=== PATIENT | female | born 2000 | race Caucasian/White ===

== ENCOUNTER 2020-07-22 12:29 | Outpatient (REF) | payer OTHER, MEDICAID, SELFPAY ==
--- NOTE | ~2020-07-22 | XR_ITS ---
EXAMINATION: XR PELVIS CLINICAL INFORMATION: Pain COMPARISON: None TECHNIQUE: AP view of the pelvis. FINDINGS: The bones and soft tissues are normal. No fracture. Sacroiliac and hip joints are normal. Pubic symphysis is normal. No abnormal soft tissue calcifications. XR/XR pelvis 1-2V IMPRESSION: Normal pelvis.
--- NOTE | ~2020-07-22 | XR_ITS ---
EXAMINATION: XR LUMBOSACRAL SPINE CLINICAL INFORMATION: Pain COMPARISON: 11/07/2019 TECHNIQUE: Three views of the lumbosacral spine. FINDINGS: Spina bifida occulta at L5. Vertebral body heights maintained. Disc spaces preserved. Alignment maintained. No significant degenerative changes. The paraspinal soft tissues are normal. XR/XR lumbar spine 2-3V IMPRESSION: Spina bifida occulta. Otherwise unremarkable radiographic appearance of the lumbar spine.
[2020-07-22 14:28] LABS: MANUAL DIFF FLAG NO
[2020-07-22 14:37] LABS: Basophils Absolute Auto 0.1 X10*3/uL (0.0-0.2); Basophils Percent Auto 0.9 % (0-2); Eosinophils Absolute Auto 0.1 X10*3/uL (0.0-0.4); Eosinophils Percent Auto 2.3 % (0-4); Hematocrit 42.2 % (37-47); Hemoglobin 14.3 g/dl (12.0-16.0); Imm Gran Abs Auto 0.01 X10*3/uL (0.00-0.03); Imm Gran Pct Auto 0.2 % (0.0-0.4); Lymphocytes Absolute Auto 2.2 X10*3/uL (1.2-4.9); Lymphocytes Percent Auto 37.9 % (20-40); Mean Corpuscular HGB Conc 33.9 g/dl (31.0-35.0); Mean Corpuscular Hemoglobin 30.4 pg (27.0-33.0); Mean Corpuscular Volume 89.8 fL (80-98); Mean Platelet Volume 10.4 fL (9.4-12.3); Monocytes Absolute Auto 0.8 X10*3/uL (0.1-1.2); Monocytes Percent Auto 13.4 % (2-11); Neutrophils Absolute Auto 2.6 X10*3/uL (2.0-8.3); Neutrophils Percent Auto 45.3 % (45-73); Platelet Count 294 X10*3/uL (160-400); White Blood Count 5.8 X10*3/uL (4.8-10.8)
[2020-07-22 14:57] LABS: Alanine Aminotransferase 17 U/L (0-31); Albumin Level 4.2 g/dL (3.5-5.0); Alkaline Phosphatase 69 U/L (39-117); Anion Gap 14 (12-20); Aspartate Amino Transferase 15 U/L (5-31); Bilirubin Total 1.2 mg/dL (0.0-1.0); Blood Urea Nitrogen 12 mg/dL (9-16); C Reactive Protein 0.02 mg/dL (< or = 0.50); Calcium 9.3 mg/dL (8.4-10.2); Carbon Dioxide 24 mmol/L (22-29); Chloride 106 mmol/L (96-108); Estimated Glomerular Filt Rate > 60; Glucose Random 78 mg/dL (60-115); Potassium 3.8 mmol/L (3.3-5.1); Rheumatoid Factor < 15.0 IU/mL (<15.0); Sodium 140 mmol/L (135-145); Total Protein 7.2 g/dL (6.5-8.0)
[2020-07-22 15:29] LABS: Erythrocyte Sedimentation Rate 3 MM/HR (0-20)
[2020-07-23 16:27] LABS: Cyclic Citrullinated Peptide <16 UNITS
[2020-07-23 22:08] LABS: Anti Nuclear Antibody Screen POSITIVE (NEGATIVE)
== END 2020-07-22 12:30 | disposition home or self-care (01) ==
LOC: HO.LAB 12:29
PROVIDERS: PCP Physician Assistant; Visit Provider Student in an Organized Health Care Education/Training Program
DX: M25.50 Pain in unspecified joint (principal)
CPT/HCPCS: 36415; 72100; 72170; 80053; 85025; 85652; 86038; 86039; 86140; 86200; 86431

== ENCOUNTER 2020-10-20 14:06 | Outpatient (REF) | payer OTHER, MEDICAID, SELFPAY ==
--- NOTE | ~2020-10-20 | US_ITS ---
EXAMINATION: US DIAGNOSTIC ULTRASOUND BREAST, RIGHT CLINICAL INFORMATION: 19-year-old with chronic history intermittent right inferior lateral cyclical breast pain. Also chronic intermittent right axillary pain. Patient provides history of fibromyalgia. Clinical breast exam demonstrates tenderness and possible 5 cm mass 5:00 to 6:00 position. No prior breast imaging. COMPARISON: None. TECHNIQUE: Ultrasound of the right breast is targeted to the areas of clinical concern. Imaging right axilla also performed. Patient is able to point to area of symptoms at time of imaging. Grayscale imaging and color Doppler are performed without and with harmonics. FINDINGS: There is no focal suspicious finding. There is no cystic or solid mass, architectural abnormality, duct ectasia, or edema in the soft tissue planes. There is no axillary adenopathy. Results are discussed with the patient at time of visit. US/US breast RT limited IMPRESSION: Normal study. ASSESSMENT: BI-RADS 1: Negative RECOMMENDATION: 1. Patient's chronic breast and axillary pain should be managed based on the clinical impression. 2. If there is clinical concern for palpable abnormality, further evaluation may be considered with surgical consult. Decision to proceed with biopsy should be based on clinical grounds and degree of clinical concern.
== END 2020-10-20 14:07 | disposition home or self-care (01) ==
LOC: HO.MAMMO 14:06
PROVIDERS: Visit Provider Nurse Practitioner Family
DX: N63.15 Unspecified lump in the right breast, overlapping quadrants (principal); M79.621 Pain in right upper arm
CPT/HCPCS: 76642

== ENCOUNTER 2021-02-26 11:39 | Outpatient (REF) | payer OTHER, MEDICAID, SELFPAY ==
[2021-02-26 12:29] LABS: Influenza A PCR NEGATIVE (Negative); Influenza B PCR NEGATIVE (Negative); Resp Syncy Virus RNA Qual PCR NEGATIVE (Negative); SARS COV2 PCR INHOUSE NEGATIVE (Negative)
== END 2021-02-26 11:40 | disposition home or self-care (01) ==
LOC: HO.LNP 11:39
PROVIDERS: Visit Provider Internal Medicine
DX: Z20.822 Contact with and (suspected) exposure to COVID-19 (principal); R43.9 Unspecified disturbances of smell and taste
CPT/HCPCS: 0241U

== ENCOUNTER 2021-04-25 22:53 | Emergency (ER) | payer OTHER, SELFPAY ==
--- NOTE | 2021-04-25 | ECG_ITS ---
Test Reason : palpitations Blood Pressure : / mmHG Vent. Rate : 073 BPM Atrial Rate : 073 BPM P-R Int : 150 ms QRS Dur : 076 ms QT Int : 360 ms P-R-T Axes : 045 034 019 degrees QTc Int : 396 ms Normal sinus rhythm Normal ECG When compared with ECG of 07-FEB-2019 11:26, No significant change was found Referred By: Generic ED Physician Electronically Signed By:Deepak Quevedo
--- NOTE | ~2021-04-25 | XR_ITS ---
EXAMINATION: XR CHEST CLINICAL INFORMATION: Shortness of breath and chest pain COMPARISON: 11/07/2019 TECHNIQUE: Frontal view of the chest was obtained. FINDINGS: Compared to the prior study, lung volumes are slightly decreased. Allowing for this, no significant abnormality is noted involving the heart, lungs, mediastinum, bony thorax or soft tissues. XR/XR chest 1V IMPRESSION: No acute intrathoracic disease
[2021-04-25 23:28] VITALS: BP 113/62; PULSE 77; RESP 16; TEMP 36.4; O2SAT 100; BMI 24.2
--- NOTE | 2021-04-25 23:41 | PC.NURSE ---
PT TRIAGED AND BROUGHT TO [facility].PT AMB TO BATHROOM. URINE CUP GIVEN IN CASE U/A ORDERED.
--- NOTE | 2021-04-25 23:51 | ED_ITS ---
HPI - General Adult General Chief complaint: General Medical Stated complaint: Chest pain/ trouble breathing, hurts to breathe Time Seen by Provider: 04/25/21 22:58 History of Present Illness HPI narrative: Patient is a 20-year-old female presents today with having chest pain after getting in to a stressful situation at work. Patient feels a tightness in her chest. No fever no chills no cough no congestion or upper respiratory symptoms. No diaphoresis. No history of diabetes, hypertension, NV, family history of NV. No history blood clots in the past. Not on control. Not sexually active does not think she is . Patient does admit to smoking. The pain happens every time she has a stressful situation. Resolve with time. Does not happen with exertion. Related Data Home Medications Medication Instructions Recorded Confirmed sertraline 25 mg tablet 12.5 mg PO DAILY tab 06/09/20 06/09/20 dextroamphetamine-amphetamine ER 1 cap PO DAILY 12/25/20 10 mg 24hr capsule,extend release Previous Rx's Medication Instructions Recorded meloxicam 15 mg tablet 15 mg PO DAILY #90 tab 10/29/20 albuterol sulfate 90 mcg/actuation 1 inh INHALATION QID PRN #6.7 g 02/26/21 aerosol inhaler azithromycin 250 mg tablet 250 mg PO DAILY 5 Days #5 tab 02/26/21 (Zithromax) Allergies Allergy/AdvReac Type Severity Reaction Status Date / Time No Known Allergies Allergy Verified 04/25/21 23:44 [No Known Allergies*] Review of Systems Verdana 4l Review of Systems: Verdana 4d No fever no chills positive Verdana 4d chest pain or diaphoresis Verdana 4d Yes all other systems are reviewed and are negative [facility] Past Medical History Attestation statement: The following information was validated with the patient. 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 Oriented X3. No acute distress. Eyes: Pupils equal, round and reactive to light. ENT: Pharynx normal. Neck: Normal inspection. Neck supple. No lymph nodes noted. No crepitus CVS: Normal heart rate and rhythm. Pulses normal. Normal S1 and S2 Respiratory: No respiratory distress. Breath sounds normal. No Wheezing. No rales Abdomen: Soft and nontender. No rigidity. No distention. good BS x4 Skin: Skin warm and dry. Normal skin color. Normal skin turgor. Extremities: No lower extremity edema. Neurovascular intact to all extremities. No Lacerations. No Rash Neuro: Oriented X 3. No motor deficit. No sensory deficit. Moving all extermities. No slurred speech Medical Decision Making MDM Narrative Medical decision making narrative: Well-appearing no acute distress symptoms consistent with having stressful event. Will check a chest x-ray to rule out the possibility of pneumonia pneumothorax. A COVID test was ordered. Patient's EKG showed a sinus pattern LA QRS QTC within normal limits is no acute ST segment elevation. Symptoms not consistent with ACS. Patient's chest x-ray is grossly negative. No evidence for pneumonia no evidence for pneumothorax. Patient's COVID test was negative. In stable condition with discharge patient home. Lab Data Lab results reviewed: Yes I reviewed the patient's lab results. Labs: Lab Results 04/25/21 Range/Units 23:55 COVID-19 (GEORGE) Negative (Negative) COVID-19 Clin Com See Note Discharge Plan Discharge Clinical Impression: Anxiety Patient Disposition: Home, Self-Care Instructions: Anxiety (ED) Prescriptions: No Action meloxicam 15 mg tablet 15 mg PO DAILY Qty: 90 0RF sertraline 25 mg tablet 12.5 mg PO DAILY 0RF azithromycin [Zithromax] 250 mg tablet 250 mg PO DAILY 5 Days Qty: 5 0RF albuterol sulfate 90 mcg/actuation HFA aerosol inhaler 1 inh inhalation QID PRN (Reason: shortness of breath or wheezing) Qty: 6.7 1RF Referrals: Miguel Mcintyre PA-C [Primary Care Provider] - 2 days
[2021-04-26 00:17] LABS: COVID-19 Test Negative (Negative); IDNOW Serial# 9DD0AD1C
[2021-04-26 00:52] VITALS: BP 99/60; PULSE 77; RESP 16; O2SAT 100
== END 2021-04-26 01:01 | disposition home or self-care (01) ==
PROVIDERS: Emergency Provider Emergency Medicine Emergency Medical Services; PCP Physician Assistant
DX: R07.9 Chest pain, unspecified (principal); R06.02 Shortness of breath; Z79.899 Other long term (current) drug therapy; Z20.822 Contact with and (suspected) exposure to COVID-19
CPT/HCPCS: 71045; 87635; 93005; 99284

== ENCOUNTER 2023-10-10 10:12 | Outpatient (AMB) | payer OTHER, MEDICAID, SELFPAY ==
--- NOTE | 2023-10-10 10:15 | A.OFFPC_ITS ---
Vital Signs 10/10/23 10:16 Height 5 ft 3 in Weight 151 lb 8 oz BMI 26.8 BP 128/86 Blood Pressure Location Rt brachial Position Sitting Pulse 71 Pulse Source Pulse Oximeter Pulse Oximetry (%) 99 Oxygen Delivery Method Room Air Intake Visit Reasons: f/u Allergies No Known Allergies [No Known Allergies*] Allergy (Verified 10/10/23 10:21) Medication List - Last Reviewed 10/10/23 by Alysa Arthur MA dextroamphetamine-amphetamine 10 mg ER 1 cap PO DAILY sertraline 12.5 mg PO DAILY Tobacco use date assessed: 10/10/23 Dental Screening Dental Screen Date: 10/10/23 Did you have a dental visit in the last 12 months?: Yes Did you have a dental problem in the last 6 months where you did not have access to dental care?: No Was dental information given to patient?: Patient has dentist HPI f/u HPI Details Patient is 22-year-old female came in today for physical exam Patient is seeing a psychiatrist in a missed and is taking Adderall and sertraline through them She is requesting a therapy appointment Patient says that it is difficult for her psychiatrist set her up because of her insurance She has changed her lifestyle Has stopped smoking Now eating healthy She has left her ex and is now with new partner and is doing much better. Lab order placed to be done fasting Physical exam 1 year Need OBGYN referral [facility] Medical History Depression Autism Fibromyalgia Surgical History No pertinent past surgical history Family History Father Medical history unknown Mother Chronic mental illness Substance abuse Paternal Grandmother CVD (cardiovascular disease) Myocardial infarction Brother Alive and well Social History Housing: Apartment Alcohol intake: never Patient Tobacco Use Status: Former Tobacco user Cigarettes Per Day: 2 Years Smoked: 2 years e-Cigarette/Vaping Use: Never Used Current occupational status: employed Cognitive needs: No Hearing needs: No Vision needs: No Questionnaire PHQ-9 Over the last 2 weeks, how often have you been bothered by any of the following problems? 1. Little interest or pleasure in doing things: several days 2. Feeling down, depressed, or hopeless: not at all 3. Trouble falling or staying asleep, or sleeping too much: several days 4. Feeling tired or having little energy: several days 5. Poor appetite or overeating: not at all 6. Feeling bad about yourself - or that you are a failure or have let yourself or your family down: several days 7. Trouble concentrating on things, such as reading the newspaper or watching television: several days 8. Moving or speaking so slowly that other people could have noticed. Or the opposite - being so fidgety or restless that you have been moving around a lot more than usual: several days 9. Thoughts that you would be better off or of hurting yourself in some way: not at all Total score: 6 Depression Screening Interpretation: Negative Depression Screening Done: Yes 36418 - PHQ-9 Billing: Yes Source: Developed by Drs. Junior Blair, Parul Dow, Gerry Sanchez and colleagues, with an educational carmen from [employer]. Thrive Questionnaire Date Thrive assessed: 10/10/23 I am a: Patient What is your living situation today?: I have a steady place to live Within the past 12 months, did the food you bought not last and you didn't have the money to get more?: Never true Within the past 12 months, did you worry whether your food would run out before you got money to buy more?: Never true Do you have trouble paying for medicines?: I choose not to answer this question Do you have trouble getting transportation to medical appointments?: I choose not to answer this question Do you have trouble paying your heating and electricity bill?: I choose not to answer this question Do you have trouble taking care of your child, family member or friend?: I choose not to answer this question Do you have trouble with day-to-day activities such as bathing, preparing meals, shopping, managing finances, etc.?: I choose not to answer this question Are you currently unemployed and looking for a job?: I choose not to answer this question Are you interested in more education?: I choose not to answer this question Please select the resources that you would like help with: None Currently or been in a relationship where the following occur: No concerns reported THRIVE Score: 0 AUDIT C Alcohol Use Questionnaire (AUDIT-C) 1. How often do you have a drink containing alcohol?: Never 3. How often do you have six or more drinks on one occasion?: Never Total Score: 0 Score Reviewed/Action Taken: Yes IDALMIS-7 AMB Questionnaire IDALMIS-7 Date IDALMIS - 7 assessed: 10/10/23 Feeling nervous, anxious, or on edge: 1 = Several days Not being able to stop or control worryin = Several days Worrying too much about different things: 1 = Several days Trouble relaxin = Several days Being so restless that it is hard to sit still: 1 = Several days Becoming easily annoyed or irritable: 1 = Several days Feeling afraid as if something awful might happen: 0 = Not at all Total IDALMIS-7 score (0-4 normal; 5-9 mild; 10-14 moderate; 15-21 severe): 6 Source: Developed by Drs. Junior Blair, Parul Dow, Gerry Sanchez and colleagues, with an educational carmen from [employer]. IDALMIS-7 Assessment Billing IDALMIS-7 Assessment Tool: IDALMIS-7 Assessment 79418 Review of Systems Const Denies chills, Denies fever(s) and Denies headache(s) Eyes Denies blurry vision ENT Denies headache(s), Denies nasal discharge, Denies nasal obstruction, Denies odynophagia and Denies sinus pain Card Denies chest pain at rest and Denies chest pain with activity Resp Denies cough and Denies hemoptysis GI Denies diarrhea, Denies odynophagia, Denies vomiting and Denies hematemesis Reports as per HPI Musc Denies abnormal gait Skin/Breast Reports as per HPI Neuro Denies Neuro-related abnormal movements, Denies Abnormal speech present, Denies abnormal gait, Denies headache(s) and Denies Sensory deficit (Neuro) Psych Denies mood swings and Denies paranoia Endo Reports as per HPI Lev/Lymph Reports as per HPI Aller/Immun Reports as per HPI Physical exam (Primary Care) Vital Signs: Last Vital Signs Pulse 71 10/10/23 10:16 BP 128/86 10/10/23 10:16 Pulse Ox 99 10/10/23 10:16 Oxygen Delivery Method Room Air 10/10/23 10:16 BMI result Body Mass Index 26.8 Tobacco/Smoking Status: Tobacco use Status Tobacco use date assessed 10/10/23 10/10/23 10:21 Patient Tobacco Use Status Former Tobacco user 10/10/23 10:21 e-Cigarette/Vaping Use Never Used 10/10/23 10:21 PHQ-9: PHQ-9 Score PHQ-9: Total score 6 10/10/23 10:56 Depression Screening Interpretation: Negative Thrive Assessment: Date of Thrive Assessment Date Thrive assessed 10/10/23 10/10/23 10:21 Currently or been in a relationship where the following occur: No concerns reported Const General: cooperative, comfortable and no acute distress Orientation/consciousness: patient oriented x3 HENMT Head: Yes normocephalic and Yes atraumatic Eyes General: appearance normal, both eyes and all related structures Pupils: Equal, round and reactive pupils present EOM: EOMs intact bilaterally Neck Neck: Yes supple and No lymphadenopathy Thyroid: Thyroid normal Lymphatic: no lymphadenopathy noted Resp Effort & Inspection: normal respiratory effort and able to speak in complete sentences Auscultation: clear to auscultation bilaterally Cardio Heart sounds: S1 normal heart sound present and S2 normal heart sound present GI Palpation (GI): Soft to palpation and nontender Auscultation: normal bowel sounds General: Yes no CVA tenderness Back/Spine/Pelvis Back: no CVA tenderness Skin General skin exam: elasticity normal and turgor normal Neuro General: patient oriented x3 and gait normal Cranial nerves: Yes Equal, round and reactive pupils present Speech: No Abnormal speech present Sensory Exam: No Sensory deficit (Neuro) Coordination: tandem gait normal and Romberg test negative Extrem General: Yes normal exam except as noted and No edema Assessment and Plan Assessment & Plan (1) Encounter for general adult medical examination with abnormal findings: Code(s): Z00.01 - Encounter for general adult medical examination with abnormal findings (2) Major depression, recurrent: Code(s): F33.9 - Major depressive disorder, recurrent, unspecified Qualifiers: Active/Remission status: in partial remission Qualified Code(s): F33.41 - Major depressive disorder, recurrent, in partial remission (3) ADD (attention deficit disorder): Code(s): F98.8 - Other specified behavioral and emotional disorders with onset usually occurring in childhood and adolescence Qualifiers: Attention deficit type: unspecified type Qualified Code(s): F98.8 - Other specified behavioral and emotional disorders with onset usually occurring in childhood and adolescence (4) Fibromyalgia: Code(s): M79.7 - Fibromyalgia Plan Patient is 22-year-old female came in today for physical exam Patient is seeing a psychiatrist in a missed and is taking Adderall and sertraline through them She is requesting a therapy appointment Patient says that it is difficult for her psychiatrist set her up because of her insurance She has changed her lifestyle Has stopped smoking Now eating healthy She has left her ex and is now with new partner and is doing much better. Lab order placed to be done fasting Physical exam 1 year Need OBGYN referral Orders: Orders LDL Cholesterol Direct Today F33.9 - Major depressive disorder, recurrent, unspecified, F98.8 - Other specified behavioral and emotional disorders with onset usually occurring in childhood and adolescence, M79.7 - Fibromyalgia, Z00.01 - Encounter for general adult medical examination with abnormal findings Comprehensive Met. Panel Today F33.9 - Major depressive disorder, recurrent, unspecified, F98.8 - Other specified behavioral and emotional disorders with onset usually occurring in childhood and adolescence, M79.7 - Fibromyalgia, Z00.01 - Encounter for general adult medical examination with abnormal findings TSH reflex Free T4 Today F33.9 - Major depressive disorder, recurrent, unspecified, F98.8 - Other specified behavioral and emotional disorders with onset usually occurring in childhood and adolescence, M79.7 - Fibromyalgia, Z00.01 - Encounter for general adult medical examination with abnormal findings Vitamin B12 Today F33.9 - Major depressive disorder, recurrent, unspecified, F98.8 - Other specified behavioral and emotional disorders with onset usually occurring in childhood and adolescence, M79.7 - Fibromyalgia, Z00.01 - Encounter for general adult medical examination with abnormal findings Vitamin D 25-OH (D2 and D3) Today F33.9 - Major depressive disorder, recurrent, unspecified, F98.8 - Other specified behavioral and emotional disorders with onset usually occurring in childhood and adolescence, M79.7 - Fibromyalgia, Z00.01 - Encounter for general adult medical examination with abnormal findings Complete Blood Count Auto Diff Today F33.9 - Major depressive disorder, recurrent, unspecified, F98.8 - Other specified behavioral and emotional disorders with onset usually occurring in childhood and adolescence, M79.7 - Fibromyalgia, Z00.01 - Encounter for general adult medical examination with abnormal findings Referrals [employer] Referral Z01.419 - Encounter for gynecological examination (general) (routine) without abnormal findings Coding Level of Care Code Est Pt Level 3 (09563) Est Pt Prev Care 18-39y(53993) Diagnoses Encounter for general adult medical examination with abnormal findings Z00.01 Recurrent major depressive disorder, in partial remission F33.41 Active/Remission status: in partial remission Attention deficit disorder, unspecified type F98.8 Attention deficit type: unspecified type Fibromyalgia M79.7 Additional Codes IDALMIS-7 Assessment Billing - IDALMIS-7 Assessment Tool: IDALMIS-7 Assessment [id number] ([id number])
[2023-10-10 10:16] VITALS: BP 128/86; PULSE 71; O2SAT 99; BMI 26.8
== END 2023-10-10 11:00 | disposition home or self-care (01) ==
PROVIDERS: PCP Physician Assistant; Visit Provider Internal Medicine
DX: Z00.00 Encounter for general adult medical examination without abnormal findings (principal); F33.41 Major depressive disorder, recurrent, in partial remission; F98.8 Other specified behavioral and emotional disorders with onset usually occurring in childhood and adolescence; M79.7 Fibromyalgia
CPT/HCPCS: 99395

== ENCOUNTER 2023-10-11 15:26 | Outpatient (REF) | payer OTHER, MEDICAID, SELFPAY ==
[2023-10-11 15:43] LABS: MANUAL DIFF FLAG NO
[2023-10-11 16:01] LABS: Basophils Percent Auto 0.8 % (0-2); Eosinophils Absolute Auto 0.1 X10*3/uL (0.0-0.4); Eosinophils Percent Auto 2.1 % (0-4); Hematocrit 41.4 % (37.0-47.0); Hemoglobin 14.4 g/dl (12.0-16.0); Imm Gran Abs Auto 0.01 X10*3/uL (0.00-0.03); Imm Gran Pct Auto 0.2 % (0.0-0.4); Lymphocytes Absolute Auto 1.6 X10*3/uL (1.2-4.9); Lymphocytes Percent Auto 34.4 % (20-40); Mean Corpuscular HGB Conc 34.8 g/dl (31.0-35.0); Mean Corpuscular Hemoglobin 30.6 pg (27.0-33.0); Mean Corpuscular Volume 88.1 fL (80.0-98.0); Mean Platelet Volume 10.3 fL (9.4-12.3); Monocytes Absolute Auto 0.4 X10*3/uL (0.1-1.2); Monocytes Percent Auto 8.4 % (2-11); Neutrophils Absolute Auto 2.6 x10*3/uL (2.0-8.3); Neutrophils Percent Auto 54.1 % (45-73); Platelet Count 221 X10*3/uL (160-400); Red Cell Distribution Width 13.2 % (11.0-16.0); White Blood Count 4.7 X10*3/uL (4.8-10.8)
[2023-10-11 17:08] LABS: Alanine Aminotransferase 15 U/L (0-31); Alkaline Phosphatase 57 U/L (39-117); Anion Gap 14 (12-20); Aspartate Amino Transferase 16 U/L (5-31); Bilirubin Total 0.8 mg/dL (0.0-1.0); Blood Urea Nitrogen 11 mg/dL (9-16); Calcium 8.8 mg/dL (8.4-10.2); Carbon Dioxide 20 mmol/L (22-29); Chloride 108 mmol/L (96-108); Estimated Glomerular Filt Rate > 60; Glucose Random 93 mg/dL (60-115); Sodium 138 mmol/L (135-145); Total Protein 6.8 g/dL (6.5-8.0)
[2023-10-11 17:15] LABS: TSH reflex Free T4 1.52 uIU/mL (0.32-4.0)
[2023-10-11 17:19] LABS: Vitamin B12 587 pg/mL (200-900)
[2023-10-12 11:24] LABS: LDL Cholesterol Direct 105 mg/dL (<100)
[2023-10-15 16:28] LABS: Vitamin D 25-OH, D2 <4 ng/mL; Vitamin D 25-OH, D3 10 ng/mL; Vitamin D 25-OH, Total 10 ng/mL (30-100)
== END 2023-10-11 15:27 | disposition home or self-care (01) ==
LOC: HO.LAB 15:26
PROVIDERS: PCP Internal Medicine; Visit Provider Internal Medicine
DX: Z00.01 Encounter for general adult medical examination with abnormal findings (principal); F33.9 Major depressive disorder, recurrent, unspecified; F98.8 Other specified behavioral and emotional disorders with onset usually occurring in childhood and adolescence; M79.7 Fibromyalgia
CPT/HCPCS: 36415; 80053; 82306; 82607; 83721; 84443; 85025

== ENCOUNTER 2023-12-07 08:11 | Outpatient (AMB) | payer OTHER, MEDICAID, SELFPAY ==
--- NOTE | 2023-12-07 08:13 | MHC.PC.OV ---
Intake Visit Reasons: non-binary transition, pt has an I-phone Allergies No Known Allergies [No Known Allergies*] Allergy (Verified 12/07/23 08:13) Medication List - Last Reconciled 12/07/23 by Gemma Mcdonald MD cholecalciferol (vitamin D3) 25 mcg PO DAILY 90 days dextroamphetamine-amphetamine 10 mg ER 1 cap PO DAILY sertraline 12.5 mg PO DAILY Tobacco use date assessed: 12/07/23 Dental Screening Dental Screen Date: 12/07/23 Did you have a dental visit in the last 12 months?: Yes Did you have a dental problem in the last 6 months where you did not have access to dental care?: No Was dental information given to patient?: Patient has dentist HPI non-binary transition, pt has an I-phone HPI Details Patient is 23 years old female, who would like to transition into gender change she is looking for someone who can start her on testosterone treatment she is already seeing a therapist we talked about getting list of endo in this area thru her insurance who can help her and then i can place a referral for her patient will get back to me [facility] Medical History Depression Autism Fibromyalgia Surgical History No pertinent past surgical history Family History Father Medical history unknown Mother Chronic mental illness Substance abuse Paternal Grandmother CVD (cardiovascular disease) Myocardial infarction Brother Alive and well Social History Housing: Apartment Alcohol intake: never Patient Tobacco Use Status: Former Tobacco user Cigarettes Per Day: 2 Years Smoked: 2 years e-Cigarette/Vaping Use: Never Used Current occupational status: employed Cognitive needs: No Hearing needs: No Vision needs: No Questionnaire Thrive Questionnaire Date Thrive assessed: 12/07/23 I am a: Patient What is your living situation today?: I have a steady place to live Within the past 12 months, did the food you bought not last and you didn't have the money to get more?: Never true Within the past 12 months, did you worry whether your food would run out before you got money to buy more?: Never true Do you have trouble paying for medicines?: I choose not to answer this question Do you have trouble getting transportation to medical appointments?: I choose not to answer this question Do you have trouble paying your heating and electricity bill?: I choose not to answer this question Do you have trouble taking care of your child, family member or friend?: I choose not to answer this question Do you have trouble with day-to-day activities such as bathing, preparing meals, shopping, managing finances, etc.?: I choose not to answer this question Are you currently unemployed and looking for a job?: I choose not to answer this question Are you interested in more education?: I choose not to answer this question THRIVE Score: 0 AUDIT C Alcohol Use Questionnaire (AUDIT-C) 2. How many drinks containing alcohol do you have on a typical day when you are drinking?: 1 or 2 3. How often do you have six or more drinks on one occasion?: Never Total Score: 0 IDALMIS-7 AMB Questionnaire IDALMIS-7 Date IDALMIS - 7 assessed: 10/10/23 Source: Developed by Drs. Junior Blair, Parul Dow, Gerry Sanchez and colleagues, with an educational carmen from [employer]. Review of Systems Const Denies chills and Denies fever(s) ENT Denies epistaxis and Denies nasal discharge Card Denies chest pain Resp Denies chest congestion, Denies cough and Denies hemoptysis GI Denies diarrhea and Denies nausea Skin/Breast Denies rash Neuro Reports no additional complaints Psych Reports no additional complaints Endo Reports no additional complaints Physical exam (Primary Care) Tobacco/Smoking Status: Tobacco use Status Tobacco use date assessed 12/07/23 12/07/23 08:14 Patient Tobacco Use Status Former Tobacco user 12/07/23 08:14 e-Cigarette/Vaping Use Never Used 12/07/23 08:14 Thrive Assessment: Date of Thrive Assessment Date Thrive assessed 12/07/23 12/07/23 08:14 Telehealth Telehealth Telehealth Platform: [facility] Location of provider rendering services: practice address Location of patient: address on file Patient Identification confirmed using: Name, : Yes Telehealth method: video Patient verbally consented to treatment: Yes Patient verbally consented to billing insurance company: Yes Patient informed of any privacy concerns related to visit: Yes Minutes spent on Phone/Video with Pt.: 12 Assessment and Plan Assessment & Plan (1) 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
== END 2023-12-07 08:44 | disposition home or self-care (01) ==
LOC: HO.HMCC 08:11
PROVIDERS: PCP Internal Medicine; Visit Provider Internal Medicine
DX: F64.8 Other gender identity disorders (principal)

== ENCOUNTER → 2023-12-07 08:11 | Outpatient (BNVA) | payer OTHER, MEDICAID, SELFPAY | PROVIDERS: PCP Internal Medicine; Visit Provider Internal Medicine | DX: F64.8 Other gender identity disorders (principal) ==

== ENCOUNTER 2024-01-10 09:46 | Outpatient (REF) | payer OTHER, MEDICAID, SELFPAY ==
[2024-01-11 11:23] LABS: Bacterial Vaginosis PCR NEGATIVE (Negative); Candida Group PCR NOT DETECTED (Not Detect); Candida glab krusei PCR NOT DETECTED (Not Detect); Trichomonas vaginalis PCR NOT DETECTED (Not Detect)
[2024-01-11 14:44] LABS: CT PCR NOT DETECTED (Not Detect.); NG PCR NOT DETECTED (Not Detect.)
== END 2024-01-10 09:47 | disposition home or self-care (01) ==
LOC: HO.LAB 09:46
PROVIDERS: PCP Internal Medicine; Visit Provider Advanced Practice Midwife
DX: N89.8 Other specified noninflammatory disorders of vagina (principal); Z01.419 Encounter for gynecological examination (general) (routine) without abnormal findings
CPT/HCPCS: 0352U; 36415; 87491; 87591; 87625; 88175

== ENCOUNTER 2024-01-10 09:46 | Outpatient (AMB) | payer OTHER, MEDICAID, SELFPAY ==
[2024-01-10 09:48] VITALS: BP 112/70; BMI 26.0
--- NOTE | 2024-01-10 09:48 | A.OFFVIS_ITS ---
Vital Signs 01/10/24 09:48 Height 5 ft 3 in Weight 147 lb BMI 26.0 BP 112/70 Intake Visit Reasons: Manager Process, Annual Computed Tomography Technician Services: Computed Tomography Technician Present Information Interpreted: clinical only Telephone Repairer: Telephone Repairer Present Allergies No Known Allergies [No Known Allergies*] Allergy (Verified 01/10/24 09:56) Medication List - Last Reconciled 01/10/24 by Chela Resendez CNM cholecalciferol (vitamin D3) 25 mcg PO DAILY 90 days dextroamphetamine-amphetamine 10 mg ER 1 cap PO DAILY sertraline 12.5 mg PO DAILY Is last menstrual period known: Yes Last menstrual period: 12/21/23 HPI HPI Manager Process, Annual: Details: 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 This patient is sexually active with female partner, does not have any concerns about STIs, as patient screens her partners carefully with history before engaging. Has been planning and considering transitioning female to male, and is awaiting full completion of referral to [facility] endocrinology, for transition services to start low-dose testosterone. Has done much self Education about physical changes to expect and emotional changes and appetite changes and everything else and is aware. 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 Has severe acne and eczema as well as asthma, and burn sites then react w excema. In the past was on medication for her acne, but it was very expensive, and discussed that it might be beneficial to engage with dermatology early on as part of transition process, as increasing testosterone may contribute to worsening of the acne. Has no specific concerns today about this visit and is not fussing about it. Is very helpful in sharing information she has learned about what she expects from the process and has a therapist as well and feels relaxed and prepared. Is not fussy about pronouns either, in that using they them indicates something different in terms of a binary choice, as well, and is comfortable just been known as Bucky . Has plans for eventual top surgery, but not bottom. [facility] Medical History Depression Autism Fibromyalgia Surgical History No pertinent past surgical history Family History Father Medical history unknown Mother Chronic mental illness Substance abuse Paternal Grandmother CVD (cardiovascular disease) Myocardial infarction Brother Alive and well Social History Housing: Apartment Alcohol intake: never Patient Tobacco Use Status: Former Tobacco user Cigarettes Per Day: 2 Years Smoked: 2 years e-Cigarette/Vaping Use: Never Used Current occupational status: employed Cognitive needs: No Hearing needs: No Vision needs: No Female Reproductive History Menstrual Age of Menarche: 11 Duration of menses: 3-5 days Date of last menstrual period: 12/21/23 control method: none Total pregnancies: 0 History of abnormal pap smear: No (no previous pap) Physical Exam Vital Signs: Last Vital Signs BP 112/70 01/10/24 09:48 BMI result Body Mass Index 26.0 Const General: healthy appearing, comfortable, no acute distress, well developed and alert Nutritional Appearance: average body habitus Orientation/consciousness: patient oriented x3 Limitations: no limitations HEENT Head: Yes normocephalic Neck Neck: Yes normal visual inspection Chest Chest palpation & inspection: normal inspection of the chest Breast/axilla inspection: normal inspection of the breasts and normal inspection of the axillae Breast/axilla palpation: normal palpation of the breasts and normal palpation of the axillae Resp Effort & Inspection: normal respiratory effort GI Inspection: Yes normal to inspection, No Abdominal wall edema and No distended Palpation (GI): Soft to palpation and nontender General: Yes bladder normal to palpation External Female Exam: normal external appearance and normal appearance of the urethra Speculum Exam - Vagina: normal appearance of the vagina, normal palpation and normal vaginal discharge Speculum Exam - Cervix: normal appearance of the cervix, normal palpation and nontender Bimanual exam- vagina & uterus: normal bimanual exam, normal palpation, uterine size normal, bladder normal to palpation, consistency normal, normal palpation, uterine mobility normal, uterine shape normal, No Cervical tenderness present, non-tender and no cervical motion tenderness Bimanual Exam- Adnexa, other: normal adnexae, no masses, normal and No adnexal tenderness Neuro General: patient oriented x3 Assessment & Plan Assessment & Plan (1) Encounter for routine gynecological examination: Code(s): Z01.419 - Encounter for gynecological examination (general) (routine) without abnormal findings Category: Medical (2) Encounter for screening examination for sexually transmitted disease: Code(s): Z11.3 - Encounter for screening for infections with a predominantly sexual mode of transmission Category: Medical (3) Acne: Code(s): L70.9 - Acne, unspecified Category: Medical (4) Cervical cancer screening: Code(s): Z12.4 - Encounter for screening for malignant neoplasm of cervix Category: Medical (5) Gender incongruence: Comment: Is awaiting full referral to [facility] for further assistance with transitioning female to male. has done much research, . Code(s): F64.9 - Gender identity disorder, unspecified Category: Medical Plan -----Discussed in this visit the following: healthy balanced diet, regular and consistent exercise, getting recommended health screens, doing the best she can for her particular health concerns, kegel exercises, pap smear screening and followup recommendations, mammography screening and SBE, normal changes in cycles in her life stage--- . Discussed screening for STIs and offered blood tests and she feels she needs any she will discuss it with her primary care provider in terms of blood work. Testing done today for gonorrhea chlamydia trichomoniasis Gardnerella and Jasmine. Discharge and anatomy looked completely normal female patient does have some hirsute is Um and evidence of acne scars all over. Discussed changes that may occur with the addition of the testosterone in turn in so of anatomy changes and clitoromegaly and other changes for anticipatory guidance and discussed that it would be helpful to discuss all these changes but she has educated herself very well already good muscle tone noted difficulty communicating them my part how to do a Kegel but discussed in detail and she does have good tone and because she has had a painful UTI in the past she makes it a practice to void when she needs to void at work and not hold her urine excessively. Discussed that while we say come back for yearly exams that may or may not be necessary, (unless she has a new sexual partner needs testing for STIs) in part though in her age group Pap smears as she has female anatomy would be recommended every 3 years. she has no plans to change that. Bucky was able to share much self-awareness and research into anticipatory issues that she is considering in this process of transitioning and is feeling relaxed about it. Orders: Orders CT NG by PCR Today N89.8 - Other specified noninflammatory disorders of vagina Bacterial Vaginosis Panel Today N89.8 - Other specified noninflammatory disorders of vagina PAP rfx HPV E6/E7 and 16 18/45 Today Z01.419 - Encounter for gynecological examination (general) (routine) without abnormal findings Coding Level of Care Code New Pt Prev Care 18-39yr([id number] Diagnoses Encounter for routine gynecological examination Z01.419 Encounter for screening examination for sexually transmitted disease Z11.3 Acne L70.9 Cervical cancer screening Z12.4 Gender incongruence F64.9
== END 2024-01-10 11:04 | disposition home or self-care (01) ==
LOC: HO.HWSM 09:46
PROVIDERS: PCP Internal Medicine; Visit Provider Advanced Practice Midwife
DX: Z01.419 Encounter for gynecological examination (general) (routine) without abnormal findings (principal); Z11.3 Encounter for screening for infections with a predominantly sexual mode of transmission; L70.9 Acne, unspecified; Z12.4 Encounter for screening for malignant neoplasm of cervix; F64.9 Gender identity disorder, unspecified
CPT/HCPCS: 99385

== ENCOUNTER 2024-06-06 08:16 | Outpatient (REF) | payer OTHER, MEDICAID, SELFPAY ==
[2024-06-06 12:42] LABS: Influenza A PCR NEGATIVE (Negative); Influenza B PCR NEGATIVE (Negative); Resp Syncy Virus RNA Qual PCR NEGATIVE (Negative); SARS COV2 PCR INHOUSE NEGATIVE (Negative)
== END 2024-06-06 08:17 | disposition home or self-care (01) ==
LOC: HO.LAB 08:16
PROVIDERS: PCP Internal Medicine; Visit Provider Physician Assistant
DX: B34.9 Viral infection, unspecified (principal); R09.89 Other specified symptoms and signs involving the circulatory and respiratory systems
CPT/HCPCS: 0241U; 87880

== ENCOUNTER 2024-06-06 08:16 | Outpatient (AMB) | payer OTHER, MEDICAID, SELFPAY ==
[2024-06-06 08:18] VITALS: BP 108/70; PULSE 95; TEMP 37.1; O2SAT 95; BMI 26.0
--- NOTE | 2024-06-06 08:18 | AM.OFFWIN_ITS ---
Intake Vital Signs 06/06/24 08:18 Height 5 ft 3 in Weight 147 lb BMI 26.0 BP 108/70 Blood Pressure Location Rt brachial Position Sitting Pulse 95 Pulse Source Pulse Oximeter Temp 98.7 F Temp Source Oral Pulse Oximetry (%) 95 Oxygen Delivery Method Room Air Intake Visit Reasons: EP Sore throat, fever, ache, pain, nausea Intake Note: Patient here for nausea, migraines, sore throat, body aches that has been present for about 3 days. Patient Tobacco Use Status: Former Tobacco user Allergies No Known Allergies [No Known Allergies*] Allergy (Verified 06/06/24 08:20) Do you need a note to return to daycare/school/sports/work: Yes HPI HPI Comments History of Present Illness Details History - The patient is a 23-year-old female pr esenting with influenza-like symptoms that commenced 3 days ago, initially with a sore throat followed by feverish sensations, chills, and body aches. - Despite attempts to manage symptoms wi th hydration, traditional home remedies, and [id number] medications such as NyQuil and DayQuil, improvements were not notable. - Frequent coughing is reported, but the re is no associated shortness of breath or wheezing. - The patient has previously experienced episodes of bronchitis but has no respiratory conditions like asthma or COPD. - Temperature was not taken due to lack of a thermometer. Physical Exam General: Cooperative, healthy appearing, comfortable and no acute distress Orientation/consciousness: Patient oriented x3 Limitations: No limitations Head: Normal to inspection Ears: Hearing grossly normal bilaterally, external ears normal and TM's normal bilaterally Nose: Normal external nose present, Normal nares present and No nasal discharge present Face and sinus: Normal facial exam and Yes sinuses nontender Mouth: Normal oral and palatal mucosa present and moist mucous membranes Throat: Yes tonsils normal, Yes uvula midline. Posterior oropharynx erythema Eyes: Appearance normal, both eyes and all related structures Neck: Normal visual inspection Respiratory: Clear to auscultation bilaterally. Normal respiratory effort, able to speak in complete sentences, Actively coughing, no respiratory distress, not tachypneic, no tripod positioning and no use of accessory muscles Cardiovascular: Regular rate and rhythm. Normal S1 and S2 Skin: No rashes or lesions noted Neuro: Patient oriented x3 Extremities: Normal to inspection and Yes no clubbing, cyanosis or edema [facility] Medical History Depression Autism Fibromyalgia Surgical History No pertinent past surgical history Family History Father Medical history unknown Mother Chronic mental illness Substance abuse Paternal Grandmother CVD (cardiovascular disease) Myocardial infarction Brother Alive and well Social History Housing: Apartment Alcohol intake: never Patient Tobacco Use Status: Former Tobacco user Cigarettes Per Day: 2 Years Smoked: 2 years e-Cigarette/Vaping Use: Never Used Current occupational status: employed Cognitive needs: No Hearing needs: No Vision needs: No Female Reproductive History Menstrual Age of Menarche: 11 Review of Systems Const All systems reviewed & are unremarkable except as noted in HPI and below Physical Exam Vital Signs: Last Vital Signs Temp 98.7 F 06/06/24 08:18 Pulse 95 06/06/24 08:18 BP 108/70 06/06/24 08:18 Pulse Ox 95 06/06/24 08:18 Oxygen Delivery Method Room Air 06/06/24 08:18 BMI result Body Mass Index 26.0 Results AMB Rapid Strep AMB Rapid Strep Negative Last Edit by VINAY Leija on 06/06/24 08:29 Assessment & Plan Assessment & Plan (1) Acute viral syndrome: Code(s): B34.9 - Viral infection, unspecified Plan: Rapid strep is negative. Testing for influenza, COVID-19, and RSV was conducted to determine the etiology of the presented influenza-like symptoms. A note was prepared for work absence to prevent possible contagion. The use of Tamiflu was considered, addressing possible side effects and patient preference. Emphasis was placed on rest, hydration, and management of fever and body aches with acetaminophen and ibuprofen, while ensuring appropriate dosing. The patient received pamphlet instructions for self-management and emergency care requirements. A follow-up discussion for the continuation of work absence notice was planned in case of persistent symptoms. Patient was informed and verbally consented to the use of an ambient scribe for clinic note documentation during this visit Orders: Orders SARS-CoV2/FLU/RSV Today R09.89 - Other specified symptoms and signs involving the circulatory and respiratory systems Coding Level of Care Code Est Pt Level 3 (24736) Diagnoses Acute viral syndrome B34.9
== END 2024-06-06 09:01 | disposition home or self-care (01) ==
PROVIDERS: PCP Internal Medicine; Visit Provider Physician Assistant
DX: Z13.9 Encounter for screening, unspecified (principal); B34.9 Viral infection, unspecified

== ENCOUNTER 2024-08-30 14:12 | Outpatient (AMB) | payer OTHER, MEDICAID, SELFPAY ==
--- NOTE | 2024-08-30 14:13 | A.OFFPC_ITS ---
Vital Signs 08/30/24 14:15 Height 5 ft 3 in Weight 151 lb BMI 26.7 BP 104/58 L Blood Pressure Location Rt brachial Position Sitting Pulse 70 Pulse Source Pulse Oximeter Temp 98.2 F Temp Source Oral Pulse Oximetry (%) 98 Oxygen Delivery Method Room Air Intake Visit Reasons: Referral req Allergies strawberry Allergy (Mild, Verified 08/30/24 14:16) Rash Medication List - Last Reconciled 08/30/24 by Gemma Mcdonald MD cholecalciferol (vitamin D3) 25 mcg PO DAILY 90 days dextroamphetamine-amphetamine 10 mg ER 1 cap PO DAILY sertraline 12.5 mg PO DAILY testosterone cypionate mg IM Tobacco use date assessed: 08/30/24 Dental Screening Dental Screen Date: 08/30/24 Did you have a dental visit in the last 12 months?: No Did you have a dental problem in the last 6 months where you did not have access to dental care?: No Was dental information given to patient?: Patient has dentist HPI Referral req HPI Details History - The patient is a 23-year-old female pr esenting with the need for a referral to plastic surgery for a mastectomy evaluation. - The patient has been on testosterone t herapy since November after receiving a referral from her primary care physician, therapist, and office specialist. - Reports significant physical changes s [place] starting testosterone, including increased hair growth and muscle development. - The patient has been actively maintain ing a healthy lifestyle, avoiding alcohol and smoking, and minimizing sugar intake. - She noted needing more nutritious food due to increased hunger levels and has consulted a dietitian for guidance. - Past vitamin D deficiency noted with a level of 10, which had been treated with supplements only for six months before discontinuation. - The patient is concerned about insuran ce coverage for the mastectomy and is working with her healthcare providers to ensure the procedure is recognized as a medical necessity. Medical History: - Gender dysphoria. - Vitamin D deficiency. Medications: - Testosterone (prescribed by Dr. Shalini suárez [facility]). - Sertraline for an depression - Adderall for ADD Social History: - The patient works - Actively avoids alcohol and smoking. - Focuses on a healthy diet and minimal sugar intake. Diagnostic Results: - Labs: Previous vitamin D level of 10. Problem List - Gender dysphoria. - Vitamin D deficiency. - Mastectomy evaluation. - Medication management for testosterone , sertraline, and Adderall. Patient Instructions - Continue current medications, includin g testosterone. - Pursue the referral and appointment wi th a plastic surgeon for mastectomy evaluation. - Ensure continued vitamin D intake, eit her through prescription or [id number] supplements, and consider retesting levels. - For the upcoming physical exam in [facility], fast before the appointment if possible Review of Systems - General: No fever no chills - Neurological: No headaches no dizziness - Ear nose throat: No sore throat no hearing difficulty no ear pain - Cardiovascular: No syncope, no chest pain, no palpitations - Gastrointestinal: No nausea vomiting or diarrhea - Endocrine: No polyuria polydipsia no heat intolerance - Genitourinary: No dysuria , no blood in urine Physical Exam - General: No acute distress - HEENT: No acute findings - Neck: Supple - Respiratory system: Able to talk in f ull sentences, - Gastrointestinal: No pain - Extremities: No new findings - PSYCHIATRIC LPN: Alert awake oriented x3 motor se nsory intact - Skin: Normal turgor [facility] Medical History Depression Autism Fibromyalgia Surgical History No pertinent past surgical history Family History Father Medical history unknown Mother Chronic mental illness Substance abuse Paternal Grandmother CVD (cardiovascular disease) Myocardial infarction Brother Alive and well Social History Housing: Apartment Alcohol intake: never Patient Tobacco Use Status: Former Tobacco user Cigarettes Per Day: 2 Years Smoked: 2 years Packs per year/per ci.00 e-Cigarette/Vaping Use: Never Used Current occupational status: employed Cognitive needs: No Hearing needs: No Vision needs: No Female Reproductive History Menstrual Age of Menarche: 11 Questionnaire Thrive Questionnaire Date Thrive assessed: 08/30/24 I am a: Patient What is your living situation today?: I have a steady place to live Within the past 12 months, did the food you bought not last and you didn't have the money to get more?: Never true Within the past 12 months, did you worry whether your food would run out before you got money to buy more?: Never true Do you have trouble paying for medicines?: Yes Do you have trouble getting transportation to medical appointments?: Yes Do you have trouble paying your heating and electricity bill?: No Do you have trouble taking care of your child, family member or friend?: I choose not to answer this question Do you have trouble with day-to-day activities such as bathing, preparing meals, shopping, managing finances, etc.?: I choose not to answer this question Are you currently unemployed and looking for a job?: No Are you interested in more education?: No Please select the resources that you would like help with: None Currently or been in a relationship where the following occur: No concerns reported THRIVE Score: 1 AUDIT C Alcohol Use Questionnaire (AUDIT-C) 1. How often do you have a drink containing alcohol?: Never 2. How many drinks containing alcohol do you have on a typical day when you are drinking?: 1 or 2 3. How often do you have six or more drinks on one occasion?: Never Total Score: 0 IDALMIS-7 AMB Questionnaire IDALMIS-7 Date IDALMIS - 7 assessed: 10/10/23 Feeling nervous, anxious, or on edge: 1 = Several days Not being able to stop or control worryin = Not at all Worrying too much about different things: 1 = Several days Trouble relaxin = Several days Being so restless that it is hard to sit still: 0 = Not at all Becoming easily annoyed or irritable: 1 = Several days Feeling afraid as if something awful might happen: 0 = Not at all Total IDALMIS-7 score (0-4 normal; 5-9 mild; 10-14 moderate; 15-21 severe): 4 Source: Developed by Drs. Junior Blair, Parul Dow, Gerry Sanchez and colleagues, with an educational carmen from [employer]. Physical exam (Primary Care) Vital Signs: Last Vital Signs Temp 98.2 F 08/30/24 14:15 Pulse 70 08/30/24 14:15 BP 104/58 L 08/30/24 14:15 Pulse Ox 98 08/30/24 14:15 Oxygen Delivery Method Room Air 08/30/24 14:15 BMI result Body Mass Index 26.7 Tobacco/Smoking Status: Tobacco use Status Tobacco use date assessed 08/30/24 08/30/24 14:19 Patient Tobacco Use Status Former Tobacco user 08/30/24 14:15 e-Cigarette/Vaping Use Never Used 08/30/24 14:15 Thrive Assessment: Date of Thrive Assessment Date Thrive assessed 08/30/24 08/30/24 14:15 Currently or been in a relationship where the following occur: No concerns reported Coding Level of Care Code Est Pt Level 3 (59726) Diagnoses Gender incongruence F64.9 Assessment & Plan Assessment & Plan (1) Gender incongruence: Code(s): F64.9 - Gender identity disorder, unspecified Category: Medical Plan History - The patient is a 23-year-old female presenting with the need for a referral to plastic surgery for a mastectomy evaluation. - The patient has been on testosterone therapy since November after receiving a referral from her primary care physician, therapist, and office specialist. - Reports significant physical changes since starting testosterone, including increased hair growth and muscle development. - The patient has been actively maintaining a healthy lifestyle, avoiding alcohol and smoking, and minimizing sugar intake. - She noted needing more nutritious food due to increased hunger levels and has consulted a dietitian for guidance. - Past vitamin D deficiency noted with a level of 10, which had been treated with supplements only for six months before discontinuation. - The patient is concerned about insurance coverage for the mastectomy and is working with her healthcare providers to ensure the procedure is recognized as a medical necessity. Medical History: - Gender dysphoria. - Vitamin D deficiency. Medications: - Testosterone (prescribed by Dr. Loya at [facility]). - Sertraline for an depression - Adderall for ADD Social History: - The patient works - Actively avoids alcohol and smoking. - Focuses on a healthy diet and minimal sugar intake. Diagnostic Results: - Labs: Previous vitamin D level of 10. Problem List - Gender dysphoria. - Vitamin D deficiency. - Mastectomy evaluation. - Medication management for testosterone, sertraline, and Adderall. Patient Instructions - Continue current medications, including testosterone. - Pursue the referral and appointment with a plastic surgeon for mastectomy evaluation. - Ensure continued vitamin D intake, either through prescription or [id number]-[id number] supplements, and consider retesting levels. - For the upcoming physical exam in October, fast before the appointment if possible Re Orders: Referrals Plastic Surgery Referral F64.9 - Gender identity disorder, unspecified Medications: Refilled cholecalciferol (vitamin D3) 25 mcg PO DAILY 90 caps 1RF 90 days
[2024-08-30 14:15] VITALS: BP 104/58; PULSE 70; TEMP 36.8; O2SAT 98; BMI 26.7
== END 2024-08-30 15:09 | disposition home or self-care (01) ==
LOC: HO.HMCC 14:12
PROVIDERS: PCP Internal Medicine; Visit Provider Internal Medicine
DX: F64.9 Gender identity disorder, unspecified (principal)

== ENCOUNTER → 2024-08-30 14:12 | Outpatient (BNVA) | payer OTHER, MEDICAID, SELFPAY | PROVIDERS: PCP Internal Medicine; Visit Provider Internal Medicine ==

== ENCOUNTER 2024-10-29 13:37 | Outpatient (AMB) | payer OTHER, MEDICAID, SELFPAY ==
--- NOTE | 2024-10-29 13:40 | A.OFFPC_ITS ---
Vital Signs 10/29/24 13:41 Height 5 ft 3 in Weight 151 lb BMI 26.7 BP 120/70 Blood Pressure Location Lt brachial Position Sitting Pulse 72 Pulse Source Pulse Oximeter Pulse Oximetry (%) 98 Intake Visit Reasons: Annual Phsyical Allergies strawberry Allergy (Mild, Verified 10/29/24 13:41) Rash marty Adverse Reaction (Severe, Verified 10/29/24 14:09) itching Medication List - Last Reconciled 10/29/24 by Gemma Mcdonald MD cholecalciferol (vitamin D3) 25 mcg PO DAILY 90 days dextroamphetamine-amphetamine 10 mg ER 1 cap PO DAILY sertraline 12.5 mg PO DAILY testosterone cypionate mg IM Tobacco use date assessed: 08/30/24 Dental Screening Dental Screen Date: 08/30/24 HPI Annual Phsyical HPI Details letter History of Present Illness The patient is a 24-year-old female presenting with a request for surgical clearance for gender-affirming surgery. Gender Dysphoria: - The patient identifies as a transgende r male and has been undergoing testosterone therapy since January of last year. - The patient has been preparing for a g bruce-affirming mastectomy and requires clearance from a medical and psychological standpoint. - The patient has been in regular contac t with a therapist and psychiatrist for mental health support. Fibromyalgia: - The patient reports episodic back pain managed with painkillers, though none were taken today. - The patient uses THC very rarely for p ain management but has been advised by a plastic surgeon to abstain pre-surgery. Possible [place] Allergy: - The patient reports an adverse reactio n after consuming marty, including itchiness, lip swelling, and gastrointestinal disturbance. - This was the first known exposure and reaction. Medical History: - Major Depressive Disorder - Attention Deficit Hyperactivity Disord er (ADHD) - Gender Dysphoria - Fibromyalgia - Vitamin D Deficiency - Occasional THC use for back pain - Previous episodic asthma during bronch itis Social History: - Occupation involving physical activity , specifically working at [employer], involves a significant amount of walking and some possible exposure to work- related physical strain. - Family history of marty allergy. . Health Maintenance - Up-to-date with immunizations except t etanus, which is due for renewal. - Annual blood labs recommended. - Maintenance of vitamin D levels and th yroid function. - Gender-transition related healthcare d iscussions including the use of testosterone. [facility] Psychiatrist, Therapist, Bias Cutter, and Plastic Surgeon. Medications - Sertraline for Major Depressive Disord er - Testosterone injections for Gender Dys phoria - Vitamin D supplement for Vitamin D Def iciency Patient Instructions - Follow-up on blood labs including urin e, thyroid, vitamin D, cholesterol, and metabolic profile. - Avoid marty and related products due t o potential allergy. - Abstain from THC use pre-surgery as ad vised by the plastic surgeon. - Continue with regular mental health ev aluations and endocrinology visits. Review of Systems - General: No fever no chills - Neurological: No headaches no dizzin ess - Ear nose throat: No sore throat no hearing difficulty no ear pain - Cardiovascular: No syncope, no chest pain, no palpitations - Gastrointestinal: No nausea vomiting or diarrhea - Endocrine: No polyuria polydipsia no heat intolerance - Genitourinary: No dysuria - Skin: No new complaints Physical Exam General: Cooperative, healthy appearing, comfortable, no acute distress Orientation: Patient oriented x3 Head: Normal to inspection Ears: Within normal limit visually Nose: Normal external nose present Face and sinus: Normal facial exam Eyes: Appearance normal, extraocular movement intact pupils reactive Neck: Normal visual inspection and supple, occasional strain noted Respiratory: Normal respiratory effort and able to speak in complete sentences. Clear to auscultation, no stridor Cardiovascular: S1 and S2 RRR GI: Normal to inspection. Soft to palpation and nontender Skin: Turgor normal, no acute findings Neuro: Patient oriented x3, motor sensory intact, balance intact, tandem pass Extremities: Normal to inspection, range of motion intact [facility] Medical History Depression Autism Fibromyalgia Surgical History No pertinent past surgical history Family History Father Medical history unknown Mother Chronic mental illness Substance abuse Paternal Grandmother CVD (cardiovascular disease) Myocardial infarction Brother Alive and well Social History Housing: Apartment Alcohol intake: never Patient Tobacco Use Status: Former Tobacco user Cigarettes Per Day: 2 Years Smoked: 2 years e-Cigarette/Vaping Use: Never Used Current occupational status: employed Cognitive needs: No Hearing needs: No Vision needs: No Female Reproductive History Menstrual Age of Menarche: 11 Questionnaire Thrive Questionnaire Date Thrive assessed: 08/30/24 I am a: Patient What is your living situation today?: I have a steady place to live Within the past 12 months, did the food you bought not last and you didn't have the money to get more?: Never true Within the past 12 months, did you worry whether your food would run out before you got money to buy more?: Never true Do you have trouble paying for medicines?: Yes Do you have trouble getting transportation to medical appointments?: Yes Do you have trouble paying your heating and electricity bill?: No Do you have trouble taking care of your child, family member or friend?: I choose not to answer this question Do you have trouble with day-to-day activities such as bathing, preparing meals, shopping, managing finances, etc.?: I choose not to answer this question Are you currently unemployed and looking for a job?: No Are you interested in more education?: No Please select the resources that you would like help with: None Currently or been in a relationship where the following occur: No concerns reported THRIVE Score: 1 IDALMIS-7 AMB Questionnaire IDALMIS-7 Date IDALMIS - 7 assessed: 10/10/23 Source: Developed by Drs. Junior Blair, Parul Dow, Gerry Sanchez and colleagues, with an educational carmen from [employer]. Physical exam (Primary Care) Vital Signs: Last Vital Signs Pulse 72 10/29/24 13:41 BP 120/70 10/29/24 13:41 Pulse Ox 98 10/29/24 13:41 BMI result Body Mass Index 26.7 Tobacco/Smoking Status: Tobacco use Status Tobacco use date assessed 08/30/24 10/29/24 13:44 Patient Tobacco Use Status Former Tobacco user 10/29/24 13:44 e-Cigarette/Vaping Use Never Used 10/29/24 13:44 Thrive Assessment: Date of Thrive Assessment Date Thrive assessed 08/30/24 10/29/24 13:44 Currently or been in a relationship where the following occur: No concerns reported Coding Level of Care Code Est Pt Level 3 (04989) Est Pt Prev Care 18-39y(20434) Diagnoses Encounter for general adult medical examination with abnormal findings Z00.01 Gender incongruence F64.9 Fibromyalgia M79.7 Recurrent major depressive disorder, in partial remission F33.41 Active/Remission status: in partial remission Attention deficit disorder, unspecified type F98.8 Attention deficit type: unspecified type Assessment & Plan Assessment & Plan (1) Encounter for general adult medical examination with abnormal findings: Code(s): Z00.01 - Encounter for general adult medical examination with abnormal findings Category: Medical (2) Gender incongruence: Code(s): F64.9 - Gender identity disorder, unspecified Category: Medical (3) Fibromyalgia: Code(s): M79.7 - Fibromyalgia Category: Medical (4) Major depression, recurrent: Code(s): F33.9 - Major depressive disorder, recurrent, unspecified Category: Medical Qualifiers: Active/Remission status: in partial remission Qualified Code(s): F33.41 - Major depressive disorder, recurrent, in partial remission (5) ADD (attention deficit disorder): Code(s): F98.8 - Other specified behavioral and emotional disorders with onset usually occurring in childhood and adolescence Category: Medical Qualifiers: Attention deficit type: unspecified type Qualified Code(s): F98.8 - Other specified behavioral and emotional disorders with onset usually occurring in childhood and adolescence Plan letter History of Present Illness The patient is a 24-year-old female presenting with a request for surgical clearance for gender-affirming surgery. Gender Dysphoria: - The patient identifies as a transgender male and has been undergoing testosterone therapy since January of last year. - The patient has been preparing for a gender-affirming mastectomy and requires clearance from a medical and psychological standpoint. - The patient has been in regular contact with a therapist and psychiatrist for mental health support. Fibromyalgia: - The patient reports episodic back pain managed with painkillers, though none were taken today. - The patient uses THC very rarely for pain management but has been advised by a plastic surgeon to abstain pre-surgery. Possible [place] Allergy: - The patient reports an adverse reaction after consuming marty, including itchiness, lip swelling, and gastrointestinal disturbance. - This was the first known exposure and reaction. Medical History: - Major Depressive Disorder - Attention Deficit Hyperactivity Disorder (ADHD) - Gender Dysphoria - Fibromyalgia - Vitamin D Deficiency - Occasional THC use for back pain - Previous episodic asthma during bronchitis Social History: - Occupation involving physical activity, specifically working at [employer], involves a significant amount of walking and some possible exposure to work- related physical strain. - Family history of marty allergy. . Health Maintenance - Up-to-date with immunizations except tetanus, which is due for renewal. - Annual blood labs recommended. - Maintenance of vitamin D levels and thyroid function. - Gender-transition related healthcare discussions including the use of testosterone. [facility] Psychiatrist, Therapist Mara Kowalski, Bias Cutter, and Plastic Surgeon. Dr. Tino Saucedo MD Medications - Sertraline for Major Depressive Disorder - Testosterone injections for Gender Dysphoria - Vitamin D supplement for Vitamin D Deficiency Patient Instructions - Follow-up on blood labs including urine, thyroid, vitamin D, cholesterol, and metabolic profile. - Avoid marty and related products due to potential allergy. - Abstain from THC use pre-surgery as advised by the plastic surgeon. - Continue with regular mental health evaluations and endocrinology visits. Orders: Orders Comprehensive [place]. Panel Fast Today F33.41 - Major depressive disorder, recurrent, in partial remission, F64.9 - Gender identity disorder, unspecified, F98.8 - Other specified behavioral and emotional disorders with onset usually occurring in childhood and adolescence, M79.7 - Fibromyalgia, Z00.01 - Encounter for general adult medical examination with abnormal findings Vitamin D 25-OH (D2 and D3) Today F33.41 - Major depressive disorder, rec urrent, in partial remission, F64.9 - Gender identity disorder, unspecified, F98.8 - Other specified behavioral and emotional disorders with onset usually occurring in childhood and adolescence, M79.7 - Fibromyalgia, Z00.01 - Encounter for general adult medical examination with abnormal findings TSH reflex Free T4 Today F33.41 - Major depressive disorder, recurrent, in p artial remission, F64.9 - Gender identity disorder, unspecified, F98.8 - Other specified behavioral and emotional disorders with onset usually occurring in childhood and adolescence, M79.7 - Fibromyalgia, Z00.01 - Encounter for general adult medical examination with abnormal findings Complete Blood Count Auto Diff Today F33.41 - Major depressive disorder, recurrent, in partial remission, F64.9 - Gender identity disorder, unspecified, F98.8 - Other specified behavioral and emotional disorders with onset usually occurring in childhood and adolescence, M79.7 - Fibromyalgia, Z00.01 - Encounter for general adult medical examination with abnormal findings Lipid Panel Today F33.41 - Major depressive disorder, recurrent, in partial remission, F64.9 - Gender identity disorder, unspecified, F98.8 - Other specified behavioral and emotional disorders with onset usually occurring in childhood and adolescence, M79.7 - Fibromyalgia, Z00.01 - Encounter for general adult medical examination with abnormal findings UA CC w/rflx Micro + Cult Today F33.41 - Major depressive disorder, recurrent, in partial remission, F64.9 - Gender identity disorder, unspecified, F98.8 - Other specified behavioral and emotional disorders with onset usually occurring in childhood and adolescence, M79.7 - Fibromyalgia, Z00.01 - Encounter for general adult medical examination with abnormal findings
[2024-10-29 13:41] VITALS: BP 120/70; PULSE 72; O2SAT 98; BMI 26.7
--- OUTSIDE RECORDS SUMMARY | 2024-10-29 14:31 | XMS_ITS | Clinical Summary ---
Author Organization [facility] Address [address] [address] Phone Care Team Providers Care Web Administrator Name Role Phone Pcp, Unknown Primary Care Provider Unavailabl e Medications dextroamphetami ne-amphetamine (ADDERALL XR) 20 MG 24 hr capsule Take 1 capsule by mouth daily. Active melatonin 5 mg Tab Take 1 tablet by mouth every evening. Active citalopram (CELEXA) 10 MG tablet Take 2 tablets by mouth daily. Active fluticasone propionate (FLONASE) 50 mcg/actuation nasal spray 1 spray in each nostril Nasally Once a day Active triamcinolone acetonide 0.025 % cream 1 application to affected area Externally Twice a day. Do not use for more than 5 days in a row. Active amoxicillin-cla vulanate (AUGMENTIN) 875-125 mg per tablet Take 1 tablet by mouth 2 (two) times a day. 6 Active Social History Tobacco Use Types Packs/Day Years Used Date Smoking Tobacco: Never Assessed Education Answer Date Recorded Are you interested in more education? Not on kiki e 07/15/2022 Are you concerned about learning? Not on file 07/15/2022 No 07/15/2022 No 07/15/2022 Digital Access Answer Date Recorded No 08/12/2022 No 08/12/2022 Reliable internet access at home? Not on file 08/12/2022 Device with a working camera? Not on file Comments Unknown Sex and Gender Information Value Date Recorded Sex Assigned at Female 07/01/2020 1:06 PM EDT Legal Sex Female 8:46 PM EDT Gender Identity Male 06/25/2020 9:16 AM EDT Sexual Orientation Not on file Last Filed Vital Signs Vital Sign Reading Time Taken Comments Blood Pressure 100/60 04/24/2015 11:58 AM EST Pulse 74 04/24/2015 11:58 AM EST Temperature 36.4 C (97.6 F) 04/24/2015 11:58 AM EST Respiratory Rate - - Oxygen Saturation - - Inhaled Oxygen Concentration - - Weight 51.3 kg (113 lb) 04/24/2015 11:58 AM EST Height 163.2 cm (5' 4.25 ) 04/24/2015 11:[address] Body Mass Index 19.25 04/24/2015 11:58 AM EST Plan of Treatment Health Maintenance Due Date Last Done Comments DEPRESSION SCREENING 2011 SMOKING Hx and SMOKELESS TOBACCO SCREENING 10/26/2012 CHLAMYDIA SCREENING 2015 HEPATITIS C SCREENING 10/26/2017 HIV ONE-TIME SCREENING (18-65 YEARS) 10/26/2017 PAP SMEAR 10/26/2020 Adult Td,Tdap Booster 10/20/2021 10/21/2011 COVID-19 VACCINE ( season) 2023 07/06/2020 HIB VACCINES Completed 03/29/2001, 04/20, 03/03/2000, Additional history exists PNEUMOCOCCAL VACCINES (0-49 years) Completed 06/25/2001, 05/04/2000, 03/03/2000, Additional history exists HPV VACCINES Completed 06/27/2013, 02/17, 12/27/2012 MENINGOCOCCAL VACCINES (ACWY) Completed 05/10/2016, 01/16/2014, 12/30/2013 HEPATITIS A VACCINES Aged Out No long er eligible based on patient's age to complete this topic MENINGOCOCCAL VACCINES (B) Aged Out N o longer eligible based on patient's age to complete this topic Medical Devices Not on file Insurance [facility] Care Teams Web Administrator Relationship Specialty Start Date End Date Pcp, Unknown PCP - General 08/04/21 Additional Source Comments The information contained in this document represents components of the legal health record. It is not the complete legal health record.[facility]
== END 2024-10-29 14:27 | disposition home or self-care (01) ==
LOC: HO.HMCC 13:38
PROVIDERS: PCP Internal Medicine; Visit Provider Internal Medicine
DX: Z00.00 Encounter for general adult medical examination without abnormal findings (principal); F64.9 Gender identity disorder, unspecified; M79.7 Fibromyalgia; F33.41 Major depressive disorder, recurrent, in partial remission; F98.8 Other specified behavioral and emotional disorders with onset usually occurring in childhood and adolescence

== ENCOUNTER 2024-10-29 13:37 | Outpatient (REF) | payer OTHER, MEDICAID, SELFPAY ==
[2024-10-29 16:04] LABS: Hematocrit 43.9 % (37.0-47.0); Hemoglobin 15.0 g/dl (12.0-16.0); Imm Gran Abs Auto 0.01 X10*3/uL (0.00-0.03); Imm Gran Pct Auto 0.2 % (0.0-0.4); Lymphocytes Absolute Auto 1.8 X10*3/uL (1.2-4.9); MANUAL DIFF FLAG NO; Mean Corpuscular HGB Conc 34.2 g/dl (31.0-35.0); Mean Corpuscular Hemoglobin 30.2 pg (27.0-33.0); Mean Corpuscular Volume 88.5 fL (80.0-98.0); NRBC Abs Auto 0.000 X10*3/uL (0.0-0.012); NRBC Pct Auto 0.0 /100WBC (0.0-0.2); Platelet Count 256 X10*3/uL (160-400); Red Blood Count 4.96 X10*6/uL (4.20-5.50); White Blood Count 4.5 X10*3/uL (4.8-10.8)
[2024-10-29 16:12] LABS: Appearance Urine Clear; Glucose Urine UA Negative (Negative); PH 8.0 (5.0-9.0); Specific Gravity - Urine 1.010 (1.005-1.025); UMIC TRIGGER UACC YES
[2024-10-29 16:15] LABS: UACC Culture Trigger YES
[2024-10-29 16:22] LABS: Alanine Aminotransferase 24 U/L (0-31); Albumin Level 4.1 g/dL (3.5-5.0); Alkaline Phosphatase 70 U/L (39-117); Anion Gap 12 (12-20); Aspartate Amino Transferase 26 U/L (5-31); Blood Urea Nitrogen 10 mg/dL (9-16); Calcium 8.6 mg/dL (8.4-10.2); Carbon Dioxide 25 mmol/L (22-29); Chloride 107 mmol/L (96-108); Cholesterol 173 mg/dL (<200); Estimated Glomerular Filt Rate > 60; HDL Cholesterol 42 mg/dL (>40); Potassium 4.6 mmol/L (3.3-5.1); Sodium 139 mmol/L (135-145); Total Protein 6.9 g/dL (6.5-8.0); Triglycerides 58 mg/dL (<150)
[2024-11-04 12:30] LABS: Vitamin D 25-OH, D2 <4 ng/mL; Vitamin D 25-OH, D3 30 ng/mL; Vitamin D 25-OH, Total 30 ng/mL (30-100)
== END 2024-10-29 13:38 | disposition home or self-care (01) ==
LOC: HO.HMGCLDS 13:37
PROVIDERS: PCP Internal Medicine; Visit Provider Internal Medicine
DX: Z00.01 Encounter for general adult medical examination with abnormal findings (principal); Z13.6 Encounter for screening for cardiovascular disorders; F64.9 Gender identity disorder, unspecified; M79.7 Fibromyalgia; F33.41 Major depressive disorder, recurrent, in partial remission; F98.8 Other specified behavioral and emotional disorders with onset usually occurring in childhood and adolescence; R82.90 Unspecified abnormal findings in urine
CPT/HCPCS: 36415; 80053; 80061; 81001; 82306; 84443; 85025; 87086

== ENCOUNTER 2025-01-14 09:54 | Outpatient (AMB) | payer OTHER, MEDICAID, SELFPAY ==
--- NOTE | 2025-01-14 09:55 | A.OFFVIS_ITS ---
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 (Jessica) Accompanied by: Self / Same As Patient Allergies strawberry Allergy (Mild, Verified 10/29/24 13:41) Rash marty Adverse Reaction (Severe, Verified 10/29/24 14:09) itching Medication List - Last Reconciled 01/14/25 by Chela Resendez CNM cholecalciferol (vitamin D3) 25 mcg PO DAILY 90 days dextroamphetamine-amphetamine 10 mg ER 1 cap PO DAILY sertraline 12.5 mg PO DAILY testosterone cypionate mg IM Is last menstrual period known: Yes Last menstrual period: 01/06/25 Post menopausal: No Patient : No HPI HPI [employer] annual exam: Details: 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 They have read and educated themselves very much about this whole transition process even before considering embarking on it and endeavor to be as careful in his safe about everything they are having top surgery/mastectomy in February which is beneficial also because of a very strong family history of breast cancer on both mother and father side. She believes there was positive BRCA testing on both sides as well so prophylactic mastectomy would of been a good thing in any case. The mastectomy was going to be done by a plastic surgeon at [facility]. They believe follow-up will be done by that person as well. They are noticing other changes increased hirsute is Um increased acne both on chest and back though luckily not on the face. The symptoms of concern are occasional vaginal itching and dryness. 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 Medical History Depression Autism Fibromyalgia Surgical History No pertinent past surgical history Family History Father Medical history unknown Mother Chronic mental illness Substance abuse Paternal Grandmother CVD (cardiovascular disease) Myocardial infarction Brother Alive and well Social History Housing: Apartment Alcohol intake: never Patient Tobacco Use Status: Former Tobacco user Cigarettes Per Day: 2 Years Smoked: 2 years e-Cigarette/Vaping Use: Never Used Current occupational status: employed Cognitive needs: No Hearing needs: No Vision needs: No Female Reproductive History Menstrual Age of Menarche: 11 Duration of menses: 6-7 days Date of last menstrual period: 01/06/25 control method: none Total pregnancies: 0 Date of last pap smear: 01/10/24 (negative pap smear) Physical Exam Vital Signs: Last Vital Signs BP 124/78 01/14/25 10:00 BMI result Body Mass Index 28.3 Const Other: Hirsute is Um noted there is chest and back acne but not on the face.. Breast exam within normal limits. General: healthy appearing, comfortable, no acute distress, well developed and alert Nutritional Appearance: average body habitus Orientation/consciousness: patient oriented x3 Limitations: no limitations HEENT Head: Yes normocephalic Neck Neck: Yes normal visual inspection Chest Chest palpation & inspection: normal inspection of the chest Breast/axilla inspection: normal inspection of the breasts and normal inspection of the axillae Breast/axilla palpation: normal palpation of the breasts and normal palpation of the axillae Resp Effort & Inspection: normal respiratory effort GI Inspection: Yes normal to inspection, No Abdominal wall edema and No distended Palpation (GI): Soft to palpation and nontender Other: There is some enlargement of the clitoris there is a homogeneous white discharge which maybe consistent with mild yeast no erythema. Bimanual was deferred External Female Exam: normal external appearance and normal appearance of the urethra Speculum Exam - Vagina: normal appearance of the vagina and normal vaginal discharge Speculum Exam - Cervix: normal appearance of the cervix Neuro General: patient oriented x3 Assessment & Plan Assessment & Plan (1) Encounter for routine gynecological examination: Code(s): Z01.419 - Encounter for gynecological examination (general) (routine) without abnormal findings Category: Medical (2) Cervical cancer screening: Comment: 01/10/24 pap is negative Code(s): Z12.4 - Encounter for screening for malignant neoplasm of cervix Category: Medical (3) Encounter for screening examination for sexually transmitted disease: Code(s): Z11.3 - Encounter for screening for infections with a predominantly sexual mode of transmission Category: Medical (4) Yeast infection of the vagina: Comment: Patient very aware of allowing air to vulva. Prescription offered for Monistat 7 for p.r.n. use cultures pending. Code(s): B37.31 - Acute candidiasis of vulva and vagina Category: Medical (5) Gender incongruence: Comment: Has done much self investigation, under treatment of [facility] endocrinology in [place] on [facility], on testosterone currently, awaiting top surgery. Code(s): F64.9 - Gender identity disorder, unspecified Category: Medical (6) Family history of breast cancer: Comment: On both sides and believe there is positive BRCA testing as well, we will be having prophylactic bilateral mastectomy in February of 2025. Code(s): Z80.3 - Family history of malignant neoplasm of breast Category: Medical Plan Pap smear was negative last year has had no unsafe exposures but swabs done in testing for yeast versus bacterial vaginosis. 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 Does note physical changes secondary to testosterone use. Is concerned about the possibility of atrophic vaginal changes and discussed that if that does become a concern management an any question about use of estrogen cream would have to be managed via the [facility] endocrinology team that is currently prescribing the testosterone therapy. I am sending a prescription for Monistat 7 that can be used PRN vaginally if needed, (OTC Monistat via [employer] is 1 of the cheaper sources.) Discussed the possible expectations of atrophy of female anatomy that happens commonly in menopause but it maybe different than expected with the testosterone therapy and recommend seeking guidance from the endocrinology team. Discussed the clitoromegaly is a common finding, and often the other female anatomy parts may shrink somewhat. Medications: New miconazole nitrate 2% (Miconazole-7) 1 appful vaginal BEDTIME 45 grams 1RF 7 days Coding Level of Care Code Est Pt Prev Care 18-39y([id number]) Diagnoses Encounter for routine gynecological examination Z01.419 Cervical cancer screening Z12.4 Encounter for screening examination for sexually transmitted disease Z11.3 Yeast infection of the vagina B37.31 Gender incongruence F64.9 Family history of breast cancer Z80.3
[2025-01-14 10:00] VITALS: BP 124/78; BMI 28.3
--- OUTSIDE RECORDS SUMMARY | 2025-01-14 11:41 | XMS_ITS | Clinical Summary ---
Author Organization [facility] Address [address] [address] Phone Care Team Providers Care Associate Software Engineer Name Role Phone Pcp, Unknown Primary Care [...] SMOKING Hx and SMOKELESS TOBACCO SCREENING 10/26/2012 HEPATITIS C SCREENING 10/26/2017 HIV ONE-TIME SCREENING (18-65 YEARS) 10/26/2017 PAP SMEAR 10/26/2020 Adult Td,Tdap Booster 10/20/2021 10/21/2011 INFLUENZA VACCINE (#1) 2024 3, 12/29/2011, 12/22/2011 COVID-19 VACCINE ( season) 2024 07/06/2020 HIB VACCINES Completed 03/29/2001, 04/20, 03/03/2000, [...] topic Medical Devices Not on file Insurance [facility] Care Teams Associate Software Engineer Relationship Specialty Start Date End Date Pcp, Unknown PCP - General 08/04/21 Additional Source Comments The information contained in this document represents components of the legal health record. It is not the complete legal health record.[facility]
== END 2025-01-14 13:01 | disposition home or self-care (01) ==
LOC: HO.HWSM 09:54
PROVIDERS: PCP Internal Medicine; Visit Provider Advanced Practice Midwife
DX: Z01.419 Encounter for gynecological examination (general) (routine) without abnormal findings (principal); Z11.3 Encounter for screening for infections with a predominantly sexual mode of transmission; B37.31 Acute candidiasis of vulva and vagina; F64.9 Gender identity disorder, unspecified; Z80.3 Family history of malignant neoplasm of breast
CPT/HCPCS: 99395; 99459

== ENCOUNTER 2025-01-14 09:54 | Outpatient (REF) | payer OTHER, MEDICAID, SELFPAY ==
[2025-01-15 04:35] LABS: Bacterial Vaginosis PCR NEGATIVE (Negative); Candida Group PCR NOT DETECTED (Not Detect); Candida glab krusei PCR NOT DETECTED (Not Detect); Trichomonas vaginalis PCR NOT DETECTED (Not Detect)
== END 2025-01-14 09:55 | disposition home or self-care (01) ==
LOC: HO.LNP 09:54
PROVIDERS: PCP Internal Medicine; Visit Provider Advanced Practice Midwife
DX: Z01.419 Encounter for gynecological examination (general) (routine) without abnormal findings (principal); F64.9 Gender identity disorder, unspecified; B37.31 Acute candidiasis of vulva and vagina; Z20.2 Contact with and (suspected) exposure to infections with a predominantly sexual mode of transmission; Z80.3 Family history of malignant neoplasm of breast
CPT/HCPCS: 81515